=== PATIENT | male | born 1945 | race Caucasian/White ===

== ENCOUNTER 2017-09-25 08:10 | Emergency (ER) | payer OTHER ==
[~2017-09-25] VITALS: Ht 175.3 cm; Wt 81.8 kg
[~2017-09-25 08:10] MED LIST: ALBU8.5H5 INH; ASPI-621 PO; ASPI-650 PO; ASPI325T17 PO; CYAN100T PO; CYCL-259 PO; DOXY100T PO; FLUT1DIS3 INH; GUAI600T80 PO; LEVO500T47 PO; LEVO750T26 PO; METO25TA35 PO; OMEP-110 PO; OXYC5CAP2 PO; PRED10TA PO; PRED20TA PO; PRED50TA PO; PRED5TAB PO; ROSU10TA PO; SIMV40TA PO; TAMS0.4C2 PO; TIOT18CA INH
[2017-09-25] MEDS ORDERED: ALBUTEROL/IPRATROPIUM 2.5MG/0.5MG, 3 ML ONE (08:49)
[2017-09-25] MEDS ORDERED: methylPREDNISolone SOD SUCC 125 MG/2 ML ONE (08:57)
[2017-09-25] MEDS ORDERED: ASPIRIN 81 MG TABLET CHEW ONE (08:57)
[2017-09-25] MEDS ORDERED: SODIUM CHLORIDE FLUSH 10ML SYR IVF ONE (09:00)
[2017-09-25] MEDS ORDERED: ALBUTEROL/IPRATROPIUM 2.5MG/0.5MG, 3 ML NPPB ONE (09:00)
[2017-09-25] MEDS ORDERED: methylPREDNISolone SOD SUCC 125 MG/2 ML IVP ONE (09:00)
[2017-09-25] MEDS ORDERED: ASPIRIN 81 MG TABLET CHEW PO ONE (09:00)
[2017-09-25 09:15] LABS: HEMATOCRIT 44.6 % (39.2-51.8); WHITE BLOOD COUNT 5.1 x10^3/uL (3.4-10)
[2017-09-25 09:27] LABS: ASPARTATE AMINO TRANSFERASE 14 U/L (15-37); BLOOD UREA NITROGEN 8 mg/dL (7-18)
[2017-09-25 09:32] LABS: IS PT STATUS REG ER OR PRE ER? YES
[2017-09-25 11:40] VITALS: BP 117/82
== END 2017-09-25 12:03 | disposition home or self-care (01) ==
LOC: ED 10:22
DX: J44.1 Chronic obstructive pulmonary disease with (acute) exacerbation (principal); E78.5 Hyperlipidemia, unspecified; I10 Essential (primary) hypertension; I25.10 Atherosclerotic heart disease of native coronary artery without angina pectoris; Z95.2 Presence of prosthetic heart valve; Z95.5 Presence of coronary angioplasty implant and graft; I25.2 Old myocardial infarction; Z85.46 Personal history of malignant neoplasm of prostate
CPT/HCPCS: 36415; 71010; 80053; 83880; 84484; 85025; 85610; 85730; 93005; 94640; 96374; 99285; J2930; J7620

== ENCOUNTER 2017-11-06 23:01 | Emergency (ER) | payer OTHER ==
[~2017-11-06] VITALS: Ht 175.3 cm; Wt 87.0 kg
[2017-11-06 23:16] VITALS: BP 115/63
[2017-11-06] MEDS ORDERED: ASPIRIN 81 MG TABLET CHEW ONE (23:19)
[2017-11-06] MEDS ORDERED: methylPREDNISolone SOD SUCC 125 MG/2 ML ONE (23:19)
[2017-11-06] MEDS ORDERED: methylPREDNISolone SOD SUCC 125 MG/2 ML IVP ONE (23:30)
[2017-11-06] MEDS ORDERED: SODIUM CHLORIDE FLUSH 10ML SYR IVF ONE (23:30)
[2017-11-06] MEDS ORDERED: ASPIRIN 81 MG TABLET CHEW PO ONE (23:30)
[2017-11-06 23:43] LABS: ALBUMIN 3.6 g/dL (3.4-5.0); ANION GAP 9 mmol/L (5-15); CALCIUM 8.2 mg/dL (8.5-10.1); CHLORIDE 103 mmol/L (98-107); CREATININE 0.77 mg/dL (0.7-1.3)
[2017-11-07 00:07] LABS: BASOPHILS # (AUTO) 0.03 x10^3/uL (0-0.1); BASOPHILS % (AUTO) 0 % (0-1); EOSINOPHILS # (AUTO) 0.77 x10^3/uL (0-0.4); EOSINOPHILS % (AUTO) 11 % (1-7); LYMPHOCYTES # (AUTO) 2.18 x10^3/uL (1-3.4); LYMPHOCYTES % (AUTO) 31 % (22-44); MD NO; MEAN CORPUSCULAR HEMOGLOBIN 30.3 pg (27.5-34.5); MEAN CORPUSCULAR HGB CONC 33.7 g/dL (33.2-36.2); MEAN CORPUSCULAR VOLUME 89.8 fL (81-97); MEAN PLATELET VOLUME 8.4 fL (7.4-10.4); MONOCYTES # (AUTO) 0.47 x10^3/uL (0.2-0.8); MONOCYTES % (AUTO) 7 % (2-9); NEUTROPHILS # (AUTO) 3.55 x10^3/uL (1.8-6.8); NEUTROPHILS % (AUTO) 51 % (42-75); PLATELET COUNT 201 x10^3/uL (130-400); RED CELL DISTRIBUTION WIDTH 13.5 % (9.4-14.8)
[2017-11-07 00:09] LABS: D-DIMER 0.3 ug/mlFEU (0.00-0.52); INTERNATIONAL NORMALIZED RATIO 1.03 (0.93-1.1); PROTHROMBIN TIME 10.7 Seconds (9.6-11.5)
== END 2017-11-07 01:37 | disposition home or self-care (01) ==
LOC: ED 11-07 00:32
DX: J44.1 Chronic obstructive pulmonary disease with (acute) exacerbation (principal); E78.5 Hyperlipidemia, unspecified; I10 Essential (primary) hypertension; I25.10 Atherosclerotic heart disease of native coronary artery without angina pectoris; Z85.46 Personal history of malignant neoplasm of prostate; I25.2 Old myocardial infarction
CPT/HCPCS: 36415; 71045; 80048; 82040; 83880; 84484; 85025; 85379; 85610; 85730; 93005; 96374; 99285; J2930

== ENCOUNTER 2018-02-23 20:33 | Inpatient (IN) | payer OTHER ==
[~2018-02-23] VITALS: Ht 176.5 cm; Wt 91.7 kg
[2018-02-23 20:58] LABS: BASOPHILS # (AUTO) 0.06 x10^3/uL (0-0.1); BASOPHILS % (AUTO) 1 % (0-1); EOSINOPHILS # (AUTO) 1.26 x10^3/uL (0-0.4); EOSINOPHILS % (AUTO) 15 % (1-7); LYMPHOCYTES # (AUTO) 2.29 x10^3/uL (1-3.4); LYMPHOCYTES % (AUTO) 28 % (22-44); MD NO; MEAN CORPUSCULAR HEMOGLOBIN 30.9 pg (27.5-34.5); MEAN CORPUSCULAR HGB CONC 33.6 g/dL (33.2-36.2); MEAN PLATELET VOLUME 8.2 fL (7.4-10.4); MONOCYTES # (AUTO) 0.52 x10^3/uL (0.2-0.8); MONOCYTES % (AUTO) 6 % (2-9); NEUTROPHILS # (AUTO) 4.08 x10^3/uL (1.8-6.8); NEUTROPHILS % (AUTO) 50 % (42-75); PLATELET COUNT 229 x10^3/uL (130-400); RED CELL DISTRIBUTION WIDTH 13.2 % (9.4-14.8)
[2018-02-23] MEDS ORDERED: ASPIRIN 81 MG TABLET CHEW PO ONE (21:00)
[2018-02-23] MEDS ORDERED: SODIUM CHLORIDE FLUSH 10ML SYR IVF ONE ×2 (21:00→22:00)
[2018-02-23] MEDS ORDERED: ASPIRIN 81 MG TABLET CHEW ONE (21:10)
[2018-02-23 21:13] LABS: ALBUMIN 3.8 g/dL (3.4-5.0); ANION GAP 5 mmol/L (5-15); CALCIUM 8.8 mg/dL (8.5-10.1); CHLORIDE 105 mmol/L (98-107); CREATININE 0.93 mg/dL (0.7-1.3)
[2018-02-23 21:17] LABS: ALKALINE PHOSPHATASE 46 U/L (45-117); BILIRUBIN,TOTAL 0.3 mg/dL (0.2-1.0); TOTAL PROTEIN 7.5 g/dL (6.4-8.2); TROPONIN I < 0.015 ng/mL (0.000-0.045)
[2018-02-23 21:28] LABS: ALANINE AMINOTRANSFERASE 17 U/L (12-78)
[2018-02-23] MEDS ORDERED: methylPREDNISolone SOD SUCC 125 MG/2 ML ONE (21:49)
[2018-02-23] MEDS ORDERED: ALBUTEROL/IPRATROPIUM 2.5MG/0.5MG, 3 ML ONE (21:59)
[2018-02-23] MEDS ORDERED: ALBUTEROL/IPRATROPIUM 2.5MG/0.5MG, 3 ML NPPB ONE (22:00)
[2018-02-23] MEDS ORDERED: methylPREDNISolone SOD SUCC 125 MG/2 ML IVP ONE (22:00)
[2018-02-23] MEDS ORDERED: DOCUSATE 100 MG CAPSULE PO PRN (22:30)
[2018-02-23] MEDS ORDERED: ENOXAPARIN 40 MG/0.4 ML SQ SCH (22:30)
[2018-02-23] MEDS ORDERED: ACETAMINOPHEN 325 MG TABLET PO PRN (22:30)
[2018-02-23] MEDS ORDERED: TEMAZEPAM 15 MG CAPSULE PO PRN (22:30)
[2018-02-23] MEDS ORDERED: NITROGLYCERIN 0.4 MG BOTTLE (25 TABS) SL PRN (22:30)
[2018-02-23] MEDS ORDERED: ENALAPRILAT 1.25 MG/ML, 2ML IVPush PRN (22:30)
[2018-02-23] MEDS ORDERED: ONDANSETRON ODT 4 MG PO PRN (22:30)
[2018-02-23 23:05] VITALS: BP 133/87
[2018-02-24 00:11] VITALS: BP 124/78
[2018-02-24] MEDS ORDERED: ALBUTEROL SULFATE 2.5 MG/3 ML NPPB PRN (00:30)
[2018-02-24] MEDS: methylPREDNISolone SOD SUCC 40 MG/ML IVPush SCH ×4 (04:07→22:02)
[2018-02-24 04:15] LABS: TROPONIN I < 0.015 ng/mL (0.000-0.045)
[2018-02-24] MEDS: ALBUTEROL/IPRATROPIUM 2.5MG/0.5MG, 3 ML NPPB SCH ×4 (07:05→19:26)
[2018-02-24 07:59] VITALS: BP 137/81
[2018-02-24] MEDS ORDERED: HYDROcodone/CHLORPHENIR ORAL SUSP PO PRN (08:00)
[2018-02-24] MEDS ORDERED: KETOROLAC 30 MG/1 ML IVPush PRN (08:00)
[2018-02-24 09:01] LABS: TROPONIN I < 0.015 ng/mL (0.000-0.045)
[2018-02-24] MEDS: BENZONATATE 100 MG CAPSULE PO SCH ×3 (09:13→20:05)
[2018-02-24 13:17] VITALS: BP 112/72
[2018-02-24 18:51] VITALS: BP 108/72
[2018-02-25 02:12] VITALS: BP 129/78
[2018-02-25] MEDS: methylPREDNISolone SOD SUCC 40 MG/ML IVPush SCH ×2 (03:58→10:00)
[2018-02-25 06:32] VITALS: BP 107/62
[2018-02-25] MEDS: ALBUTEROL/IPRATROPIUM 2.5MG/0.5MG, 3 ML NPPB SCH ×2 (07:00→10:22)
[2018-02-25] MEDS: BENZONATATE 100 MG CAPSULE PO SCH (07:47)
[2018-02-25] MEDS ORDERED: METH4TAB2 PO (09:07)
== END 2018-02-25 10:56 | disposition home or self-care (01) | DRG 189 ==
LOC: ED 21:49 → EDIP 21:50 → 4WST 23:02 → DCLOUNGE 02-25 10:54
PROVIDERS: ADMIT Internal Medicine; ATTEND Hospitalist
DX: J96.21 Acute and chronic respiratory failure with hypoxia (principal); J44.1 Chronic obstructive pulmonary disease with (acute) exacerbation; I11.9 Hypertensive heart disease without heart failure; Z99.81 Dependence on supplemental oxygen; I25.10 Atherosclerotic heart disease of native coronary artery without angina pectoris; N40.0 Benign prostatic hyperplasia without lower urinary tract symptoms; G89.29 Other chronic pain; M54.9 Dorsalgia, unspecified; E78.5 Hyperlipidemia, unspecified; I25.2 Old myocardial infarction; Z79.82 Long term (current) use of aspirin; Z85.46 Personal history of malignant neoplasm of prostate; Z87.891 Personal history of nicotine dependence; Z95.5 Presence of coronary angioplasty implant and graft
CPT/HCPCS: 36415; 71045; 80053; 83880; 84484; 85025; 93005; 94640; J1650; J1885; J7620; J2920; J2930

== ENCOUNTER 2018-11-11 10:52 | Emergency (ER) | payer OTHER ==
[~2018-11-11] VITALS: Ht 175.3 cm; Wt 85.0 kg
[~2018-11-11 10:52] MED LIST changes: -ASPI-621 PO; +ASPI81TA45 PO; +METH4TAB2 PO
[2018-11-11] MEDS ORDERED: MORPHINE SULFATE 4 MG/ML, 1ML IVPush PRN (11:30)
[2018-11-11] MEDS ORDERED: PLEASE ENTER HEIGHT AND WEIGHT MC SCH (11:30)
[2018-11-11] MEDS ORDERED: PLEASE ENTER ALLERGIES MC SCH (11:30)
[2018-11-11] MEDS ORDERED: SODIUM CHLORIDE FLUSH 10ML SYR IVF ONE (11:30)
--- NOTE | 2018-11-11 11:31 | NUR ---
BIB [facility]. C/O LLQ this AM. Passed two small hard stools around 1000. Denies, N/V/D. Placed on NIBP, pulse ox and air sampling and monitoring. Will continue to monitor.
[2018-11-11 11:48] LABS: BASOPHILS # (AUTO) 0.05 x10^3/uL (0-0.1); BASOPHILS % (AUTO) 1 % (0-1); EOSINOPHILS # (AUTO) 0.27 x10^3/uL (0-0.4); EOSINOPHILS % (AUTO) 4 % (1-7); LYMPHOCYTES # (AUTO) 0.97 x10^3/uL (1-3.4); LYMPHOCYTES % (AUTO) 13 % (22-44); MD NO; MEAN CORPUSCULAR HEMOGLOBIN 30.6 pg (27.5-34.5); MEAN CORPUSCULAR HGB CONC 33.6 g/dL (33.2-36.2); MEAN CORPUSCULAR VOLUME 90.9 fL (81-97); MEAN PLATELET VOLUME 8.2 fL (7.4-10.4); MONOCYTES # (AUTO) 0.39 x10^3/uL (0.2-0.8); MONOCYTES % (AUTO) 5 % (2-9); NEUTROPHILS # (AUTO) 5.76 x10^3/uL (1.8-6.8); NEUTROPHILS % (AUTO) 78 % (42-75); PLATELET COUNT 231 x10^3/uL (130-400); RED BLOOD COUNT 4.55 x10^6/uL (4.38-5.82); RED CELL DISTRIBUTION WIDTH 14.1 % (9.4-14.8)
--- NOTE | 2018-11-11 11:52 | NUR ---
Patient refusing pain meds at this time.
[2018-11-11 12:00] LABS: ALANINE AMINOTRANSFERASE 22 U/L (12-78); ALBUMIN 3.7 g/dL (3.4-5.0); ANION GAP 5 mmol/L (5-15); CALCIUM 8.8 mg/dL (8.5-10.1); CHLORIDE 108 mmol/L (98-107); CREATININE 1.21 mg/dL (0.7-1.3)
[2018-11-11 12:02] LABS: ALKALINE PHOSPHATASE 55 U/L (45-117); BILIRUBIN,TOTAL 0.4 mg/dL (0.2-1.0); TOTAL PROTEIN 7.5 g/dL (6.4-8.2)
[2018-11-11 12:04] LABS: MICROSCOPIC AUTO
[2018-11-11 12:06] LABS: CULTURE INDICATED? NO
[2018-11-11] MEDS ORDERED: OMNIPAQUE 350 MG/ML, 100ML BOTTLE ONE (12:25)
--- NOTE | 2018-11-11 12:30 | NUR ---
VSS. No needs.
[2018-11-11] MEDS ORDERED: KETOROLAC 30 MG/1 ML IVPush ONE (13:00)
[2018-11-11] MEDS ORDERED: KETOROLAC 30 MG/1 ML ONE (13:18)
[2018-11-11 13:28] VITALS: BP 139/77
--- NOTE | 2018-11-11 13:28 | NUR ---
Toradol admin. No other needs.
--- NOTE | 2018-11-11 14:11 | NUR ---
Patient/Caregiver given discharge instructions and they have confirmed that they understand the instructions. Patient ambulatory with steady gait.
== END 2018-11-11 14:21 | disposition home or self-care (01) ==
LOC: ED 11:50
DX: N13.2 Hydronephrosis with renal and ureteral calculous obstruction (principal); R31.9 Hematuria, unspecified; I25.10 Atherosclerotic heart disease of native coronary artery without angina pectoris; I25.83 Coronary atherosclerosis due to lipid rich plaque; I10 Essential (primary) hypertension; I25.2 Old myocardial infarction; E78.5 Hyperlipidemia, unspecified; J44.9 Chronic obstructive pulmonary disease, unspecified
CPT/HCPCS: 36415; 74177; 80053; 81001; 83690; 85025; 93005; 96374; 99284; J1885; Q9967

== ENCOUNTER 2019-08-26 08:20 | Emergency (ER) ==
[~2019-08-26] VITALS: Ht 175.3 cm; Wt 92.0 kg
[~2019-08-26 08:20] MED LIST changes: -CYAN100T PO; +CYAN100T2 PO; -ROSU10TA PO; +ROSU10TA2 PO
--- NOTE | 2019-08-26 08:53 | NUR ---
PT REPORTS SOB AND R ARM TINGLING X1WK, PT STATES WOKE UP THIS AM WITH CP, NO LONGER HAVING CP AT THIS TIME. PT TO BP, CONT PULSE OX, CARD MONITOR.
[2019-08-26] MEDS ORDERED: ASPIRIN 81 MG TABLET CHEW ONE (09:16)
[2019-08-26] MEDS ORDERED: ASPIRIN 81 MG TABLET CHEW PO ONE (09:30)
[2019-08-26 09:38] LABS: ALBUMIN 3.7 g/dL (3.4-5.0); ANION GAP 5 mmol/L (5-15); CALCIUM 8.2 mg/dL (8.5-10.1); CHLORIDE 107 mmol/L (98-107); CREATININE 0.95 mg/dL (0.7-1.3)
[2019-08-26 09:42] LABS: TROPONIN I < 0.015 ng/mL (0.000-0.045)
[2019-08-26 09:45] LABS: BASOPHILS # (AUTO) 0.03 x10^3/uL (0-0.1); BASOPHILS % (AUTO) 0 % (0-1); EOSINOPHILS # (AUTO) 0.48 x10^3/uL (0-0.4); EOSINOPHILS % (AUTO) 8 % (1-7); LYMPHOCYTES # (AUTO) 1.48 x10^3/uL (1-3.4); LYMPHOCYTES % (AUTO) 23 % (22-44); MD NO; MEAN CORPUSCULAR HEMOGLOBIN 30.9 pg (27.5-34.5); MEAN CORPUSCULAR HGB CONC 33.6 g/dL (33.2-36.2); MEAN CORPUSCULAR VOLUME 91.9 fL (81-97); MEAN PLATELET VOLUME 7.9 fL (7.4-10.4); MONOCYTES # (AUTO) 0.36 x10^3/uL (0.2-0.8); MONOCYTES % (AUTO) 6 % (2-9); NEUTROPHILS # (AUTO) 4.03 x10^3/uL (1.8-6.8); NEUTROPHILS % (AUTO) 63 % (42-75); PLATELET COUNT 224 x10^3/uL (130-400); RED BLOOD COUNT 4.77 x10^6/uL (4.38-5.82); RED CELL DISTRIBUTION WIDTH 13.5 % (9.4-14.8)
--- NOTE | 2019-08-26 09:56 | NUR ---
ALL LABS/IMAGING BACK, PT PLACED FOR RECHECK.
[2019-08-26 10:55] VITALS: BP 126/82
--- NOTE | 2019-08-26 11:02 | NUR ---
Patient/Caregiver given discharge instructions and they have confirmed that they understand the instructions. Patient ambulatory with steady gait.
== END 2019-08-26 11:03 | disposition home or self-care (01) ==
LOC: ED 10:09
DX: R07.89 Other chest pain (principal); I25.10 Atherosclerotic heart disease of native coronary artery without angina pectoris; I25.2 Old myocardial infarction; E78.5 Hyperlipidemia, unspecified; I11.9 Hypertensive heart disease without heart failure; J43.9 Emphysema, unspecified; Z87.891 Personal history of nicotine dependence; Z85.9 Personal history of malignant neoplasm, unspecified
CPT/HCPCS: 36415; 71045; 80048; 82040; 83880; 84484; 85025; 93005; 99283